=== PATIENT | female | born 1990 | race Caucasian/White ===

== ENCOUNTER 2018-02-14 18:59 | Inpatient (IN) | payer BC ==
[2018-02-14] MEDS ORDERED: Lidocaine 1% 50 ML MDV INJECT PRN (21:46)
[2018-02-14] MEDS ORDERED: Methylergonovine 0.2 MG/1 ML Amp IM PRN (21:46)
[2018-02-14] MEDS ORDERED: Sodium Chloride 0.9% 10 ML Syringe FLUSH PRN (21:46)
[2018-02-14] MEDS ORDERED: Sodium Chloride 0.9% 2.5 ML Syringe FLUSH PRN (21:46)
[2018-02-14] MEDS ORDERED: Misoprostol 200 MCG Tab PO PRN (21:46)
[2018-02-14] MEDS ORDERED: Carboprost Tromethamine 250 MCG/1 ML Amp IM PRN (21:46)
[2018-02-14] MEDS ORDERED: Nalbuphine 10 MG/1 ML Vial IVPUSH PRN (21:46)
[2018-02-14] MEDS ORDERED: Water For Irrigation,Sterile 1,000 ML Container IRR PRN (21:46)
[2018-02-14] MEDS ORDERED: Butorphanol 1 MG/ML SDV IVPUSH PRN (21:46)
[2018-02-14] MEDS ORDERED: Tranexamic Acid 1,000 MG in Sodium Chloride 0.9% 100 ML IV PRN (21:46)
[2018-02-14] MEDS ORDERED: Oxytocin/0.9 % Sodium Chloride 30 UNIT/500 ML BAG IV SCH (22:00)
[2018-02-15] MEDS ORDERED: Oxytocin/0.9 % Sodium Chloride 30 UNIT/500 ML BAG IV SCH (05:00)
[2018-02-15] MEDS: Lactated Ringers 1,000 ML IV SCH ×3 (05:36→14:10)
[2018-02-15] MEDS ORDERED: fentaNYL 100 MCG/2 ML SDV ONE ×2 (11:02→13:58)
--- NOTE | 2018-02-15 11:46 | PCM.PREANE ---
Preanesthetic Assessment - Anesthesia/Transfusion/Family Hx Anesthesia History: Prior Anesthesia Without Reaction (pt had a bad experience with a one-sided epidural last ) Other Type of Anesthesia Reaction Comment: Nausea/vomiting, with history motion sickness Family History of Anesthesia Reaction: No Transfusion History: No Prior Transfusion(s) Intubation History: Unknown - Review of Systems General: No Symptoms Pulmonary: No Symptoms Cardiovascular: No Symptoms Gastrointestinal: No Symptoms Neurological: No Symptoms Other: Reports: Anxiety (almost PTSD related to previous epidural placement experience) - Physical Assessment NPO Status Date: 02/15/18 NPO Status Time: 11:43 (sips/chips) Blood Pressure: 119/80 Height: 5 ft 3 in Weight: 155 lb ASA Class: 2 Mental Status: Alert & Oriented x3 Airway Class: Mallampati = 2 Dentition: Reports: Normal Dentition Thyro-Mental Finger Breadths: 3 Mouth Opening Finger Breadths: 3 ROM/Head Extension: Full Lungs: Clear to Auscultation, Normal Respiratory Effort Cardiovascular: Regular Rate, Regular Rhythm - Lab Values: Laboratory Last Values WBC 9.78 K/uL (4.0-11.0) 02/14/18 22:00 RBC 3.90 M/uL (4.30-5.90) L 02/14/18 22:00 Hgb 11.3 g/dL (12.0-16.0) L 02/14/18 22:00 Hct 32.8 % (36.0-46.0) L 02/14/18 22:00 MCV 84.1 fL (80.0-98.0) 02/14/18 22:00 MCH 29.0 pg (27.0-32.0) 02/14/18 22:00 MCHC 34.5 g/dL (31.0-37.0) 02/14/18 22:00 RDW Std Deviation 38.4 fl (28.0-62.0) 02/14/18 22:00 RDW Coeff of Lisette 13 % (11.0-15.0) 02/14/18 22:00 Plt Count 226 K/uL (150-400) 02/14/18 22:00 MPV 10.60 fL (7.40-12.00) 02/14/18 22:00 Nucleated RBC % 0.0 /100WBC 02/14/18 22:00 Nucleated RBCs # 0 K/uL 02/14/18 22:00 Membrane Rupture POSITIVE 02/14/18 19:20 Blood Type O POSITIVE 02/14/18 22:00 Antibody Screen NEGATIVE 02/14/18 22:00 - Allergies Allergies/Adverse Reactions: Allergies Allergy/AdvReac Type Severity Reaction Status Date / Time sulfamethoxazole Allergy Hives Verified 02/19/16 12:42 [From Bactrim] trimethoprim [From Bactrim] Allergy Hives Verified 02/19/16 12:42 - Blood Blood Available: No Product(s) Available: None - Anesthesia Plan Free Text/Narrative:: Labor Epidural - Acknowledgements Anesthesia Type Planned: Epidural Pt an Appropriate Candidate for the Planned Anesthesia: Yes Alternatives and Risks of Anesthesia Discussed w Pt/Guardian: Yes Pt/Guardian Understands and Agrees with Anesthesia Plan: Yes PreAnesthesia Questionnaire - Past Health History Medical/Surgical History: Denies Medical/Surgical History Other Genitourinary History: Current UTI, started medication 06/10/15 [facility], Dr. 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: Other Musculoskeletal History: History Closed reduction Leg - Past Surgical History Other HEENT Surgeries/Procedures: 3 ear surgeries for growth in ears, Deaf on Left, diminished hearing Right, [place] teeth extracted - SUBSTANCE USE Smoking Status *Q: Never Smoker Tobacco Use Within Last Twelve Months: No Second Hand Smoke Exposure: No Recreational Drug Use History: No - HOME MEDS Home Medications: Home Meds Vit W-Ca,Fe,FA(<1 mg) [ Vitamins] 1 tab PO DAILY 02/19/16 [ History] - CURRENT (IN HOUSE) MEDS Current Meds: Current Medications Butorphanol Tartrate (Stadol) 1 mg IVPUSH Q1H PRN PRN Reason: Pain Carboprost Tromethamine (Hemabate Ds) 250 mcg IM ASDIRECTED PRN PRN Reason: Post Hemorrhage Tranexamic Acid 1,000 mg/ (Sodium Chloride) 110 mls @ 660 mls/hr IV ONETIME PRN PRN Reason: Bleeding Lactated Ringer's (Ringers, Lactated) 1,000 mls @ 150 mls/hr IV ASDIRECTED JUNAID Last Admin: 02/15/18 05:36 Dose: 150 mls/hr Oxytocin/Sodium Chloride (Oxytocin 30 Unit/500 Ml-Ns) 30 unit in 500 mls @ 999 mls/hr IV TITRATE JUNAID Oxytocin/Sodium Chloride (Oxytocin 30 Unit/500 Ml-Ns) 30 unit in 500 mls @ 2 mls/hr IV TITRATE JUNAID; Protocol Last Infusion: 02/15/18 11:38 Dose: 2 munits/min, 2 mls/hr Lidocaine HCl (Xylocaine 1%) 50 ml INJECT .ONCE PRN PRN Reason: Laceration repair Methylergonovine Maleate (Methergine) 0.2 mg IM ASDIRECTED PRN PRN Reason: Post Hemorrhage Misoprostol (Cytotec) 200 mcg PO .ONCE PRN PRN Reason: Post Hemorrhage Nalbuphine HCl (Nubain) 10 mg IVPUSH Q1H PRN PRN Reason: Pain (severe 7-10) Sodium Chloride (Saline Flush) 10 ml FLUSH ASDIRECTED PRN PRN Reason: Keep Vein Open Sodium Chloride (Saline Flush) 2.5 ml FLUSH ASDIRECTED PRN PRN Reason: Keep Vein Open Sterile Water (Sterile Water For Irrigation) 1,000 ml IRR ASDIRECTED PRN PRN Reason: delivery Discontinued Medications Fentanyl (Sublimaze) Confirm Administered Dose 100 mcg .ROUTE .STK-MED ONE Stop: 02/15/18 11:03 Fentanyl/Bupivacaine HCl (Kuzvhyrf-Luuyi-Ln 2 Mcg/Ml-0.125%) Confirm Administered Dose 100 mls @ as directed EP .STK-MED ONE Stop: 02/15/18 11:03
[2018-02-15] MEDS ORDERED: Bupivacaine 0.25% 10 ML SDV ONE (13:10)
[2018-02-15] MEDS ORDERED: Acetaminophen 500 MG Tab PO PRN ×2 (15:20)
[2018-02-15] MEDS ORDERED: Witch Hazel Medicated Pads 40/Jar TOP PRN (15:20)
[2018-02-15] MEDS ORDERED: Lanolin 100% Cream 7 GM Tube TOP PRN (15:20)
[2018-02-15] MEDS ORDERED: Ibuprofen 400 MG Tab PO PRN (15:20)
[2018-02-15] MEDS ORDERED: Bisacodyl 10 MG Supp RECTAL PRN (15:20)
[2018-02-15] MEDS ORDERED: oxyCODONE 5 MG Tab PO PRN (15:20)
[2018-02-15] MEDS ORDERED: Benzocaine/Menthol 20%-0.5% Spray 78 GM Cannister TOP PRN (15:20)
[2018-02-15] MEDS: Ibuprofen 800 MG Tab PO PRN (18:39)
[2018-02-15] MEDS: Docusate Sodium 100 MG Cap PO PRN (21:33)
--- NOTE | 2018-02-15 21:37 | OR ---
SURGEON: Dee Ramirez MD DATE OF PROCEDURE: 02/15/2018 [facility] OFFICER: Leslie Melendez MS IV PREOPERATIVE DIAGNOSES: 1. Intrauterine at 38 weeks and 5 days' gestation. 2. Prolonged premature rupture of membranes. 3. Group B Streptococcus negative. POSTOPERATIVE DIAGNOSES: 1. Intrauterine at 38 weeks and 5 days' gestation. 2. Prolonged premature rupture of membranes. 3. Group B Streptococcus negative. 4. Delivered. PROCEDURES: 1. Induction of labor. 2. Spontaneous vaginal delivery. 3. Repair of second-degree perineal laceration. ANESTHESIA: Epidural and local. ESTIMATED BLOOD LOSS: 300 mL. COMPLICATIONS: None. DISPOSITION: Mother and baby stable in Labor and Delivery room, [facility]. FINDINGS: Male , weight 3940 g, scores of 9 and 9 at 1 and 5 minutes respectively. Grossly normal placenta with 3-vessel cord. Second-degree perineal laceration. BRIEF HISTORY: Monika is a 27-year-old, G3, P2, who presented at about 11:00 p.m. last night, at 38 weeks and 1 day gestation with a history of leakage of fluid since 5:30 p.m. She reported the fluid to be clear accompanied by had irregular cramps and occasional contractions.Denied vaginal bleeding, and reported movements. Her care was uncomplicated.GBS negative. When she was examined, she was found to be 3 cm dilated, 80% effaced, station -2, and confirmed with spontaneous rupture, leaking of clear amniotic fluid. Management options were discussed with the patient including induction of labor versus expectant management. She was hesitant to have Pitocin and preferred to wait for expectant management. She was then monitored throughout the night till early hours of this morning, and Pitocin was started approximately 12 hours after she had ruptured. At that time, she had made no cervical change on vaginal exam and contractions were quite irregular. The patient was actually asleep before her Pitocin was started. She remained afebrile. With Pitocin, she then started having regular contractions, requested and received epidural for pain management. Unfortunately, her epidural was not really adequate despite a couple of top offs. She progressed to full dilatation and with increasing rectal pressure, commenced active pushing. heart tracing was category 2 with a raising baseline, from 130s to 160s beats per minute,occasional variable and early decelerations, with a variability that remained moderate. The patient remained afebrile throughout the intrapartum period. She pushed quite well, bringing the baby's head down to a +4 station and was set up for delivery in modified dorsal lithotomy position. DESCRIPTION OF PROCEDURE: She had a spontaneous vaginal delivery of a live male infant in direct occipital anterior position, loose nuchal cord x1 was easily reduced, clear amniotic fluid at delivery. Anterior and the posterior shoulders and the rest of the baby were delivered without difficulty. The baby was vigorous and cried spontaneously at . The baby was delivered onto the maternal abdomen with the nursery nurse in attendance, stimulating and drying him. With delivery of the , oxytocin infusion was changed to titration for active management of third stage of labor. Cord blood and gas samples were obtained. The placenta was delivered by controlled cord traction, appeared to be complete and intact. Examination of the perineum revealed a second-degree perineal laceration, which was infiltrated with 10 mL of 1% lidocaine without epinephrine. After adequate anesthesia was achieved, the laceration was repaired with 2-0 Vicryl suture in three layers using subcuticular stitches to appose the skin. Uterine massage was performed, and uterus was found to be well contracted below the umbilicus. The patient tolerated the procedure well. Sponge, instrument, and needle counts were correct at the end of the delivery. ADUMVIV / SREEL /[id number] MTDD
[2018-02-16] MEDS: Ibuprofen 800 MG Tab PO PRN ×2 (03:21→15:22)
--- NOTE | 2018-02-16 06:33 | PCM48HPAN ---
Post Anesthesia Note - EVALUATION WITHIN 48HRS OF ANESTHETIC Vital Signs in Normal Range: Yes Patient Participated in Evaluation: Yes Respiratory Function Stable: Yes Airway Patent: Yes Cardiovascular Function Stable: Yes Hydration Status Stable: Yes Pain Control Satisfactory: Yes Nausea and Vomiting Control Satisfactory: Yes Mental Status Recovered: Yes Resp Rate: 18 Blood Pressure: 119/80
--- NOTE | 2018-02-16 08:10 | PCM.PNPP ---
<AlArgelia Debbie - Last Filed: 02/16/18 08:04> - General Info Date of Service: 02/16/18 Admission Dx/Problem (Free Text): 38 5/7, prolonged premature rupture of membranes, Induction, . Subjective Update: Patient is doing well. Pain controlled with medications. . Lochia WNL. Ambulating. Urinating. Has not had a bowel movement. Tolerated food with no n/v. Anticipate discharge later today. Functional Status: Reports: Pain Controlled, Tolerating Diet, Ambulating, Urinating - Review of Systems General: Denies: Fever, Chills HEENT: Denies: Headaches Pulmonary: Denies: Shortness of Breath, Pleuritic Chest Pain Cardiovascular: Denies: Chest Pain, Palpitations, Lightheadedness Gastrointestinal: Denies: Flatus, Nausea, Vomiting Neurological: Denies: Dizziness, Headache Psychiatric: Reports: No Symptoms - General Info Date of Service: 02/16/18 - Patient Data Vital Signs - Most Recent: Last Vital Signs Temp 36.6 C 02/16/18 03:30 Pulse 78 02/16/18 03:30 Resp 18 02/16/18 06:33 BP 119/80 02/16/18 06:33 Pulse Ox 98 02/16/18 03:30 Weight - Most Recent: 155 lb Lab Results - Last 24 Hours: Laboratory Results - last 24 hr 02/15/18 02/16/18 Range/Units 14:42 07:10 Hgb 9.6 L (12.0-16.0) g/dL Hct 28.5 L (36.0-46.0) % Cord ABG pH 7.347 (7.18-7.38) Cord ABG Base Excess -5 (-10--2) Cord VBG pH 7.366 (7.25-7.45) Cord VBG Base Excess -5 (-10--2) Med Orders - Current: Current Medications Acetaminophen (Tylenol Extra Strength) 500 mg PO Q4H PRN PRN Reason: Pain Acetaminophen (Tylenol Extra Strength) 1,000 mg PO Q4H PRN PRN Reason: Pain Benzocaine/Menthol (Dermoplast Pain Relief 20%-0.5% [place]) 78 gm TOP ASDIRECTED PRN PRN Reason: Perineal Comfort Measure Last Admin: 02/15/18 21:34 Dose: 1 spray Bisacodyl (Dulcolax) 10 mg RECTAL .ONCE PRN PRN Reason: Constipation Docusate Sodium (Colace) 100 mg PO BID PRN PRN Reason: Constipation Last Admin: 02/15/18 21:33 Dose: 100 mg Emollient Ointment (Lansinoh Hpa) 0 gm TOP ASDIRECTED PRN PRN Reason: Sore Nipples Last Admin: 02/16/18 03:23 Dose: 1 applic Ibuprofen (Motrin) 400 mg PO Q4H PRN PRN Reason: Pain Ibuprofen (Motrin) 800 mg PO Q6H PRN PRN Reason: Pain Last Admin: 02/16/18 03:21 Dose: 800 mg Oxycodone HCl (Oxycodone) 5 mg PO Q2H PRN PRN Reason: Pain Witch Carleen (Tucks) 1 pad TOP ASDIRECTED PRN PRN Reason: comfort care Last Admin: 02/15/18 21:33 Dose: 1 pad Discontinued Medications Bupivacaine HCl (Sensorcaine-Mpf 0.25%) Confirm Administered Dose 10 ml .ROUTE .STK-MED ONE Stop: 02/15/18 13:11 Butorphanol Tartrate (Stadol) 1 mg IVPUSH Q1H PRN PRN Reason: Pain Carboprost Tromethamine (Hemabate Ds) 250 mcg IM ASDIRECTED PRN PRN Reason: Post Hemorrhage Fentanyl (Sublimaze) Confirm Administered Dose 100 mcg .ROUTE .STK-MED ONE Stop: 02/15/18 11:03 Fentanyl (Sublimaze) Confirm Administered Dose 100 mcg .ROUTE .STK-MED ONE Stop: 02/15/18 13:59 Tranexamic Acid 1,000 mg/ (Sodium Chloride) 110 mls @ 660 mls/hr IV ONETIME PRN PRN Reason: Bleeding Lactated Ringer's (Ringers, Lactated) 1,000 mls @ 150 mls/hr IV ASDIRECTED JUNAID Last Admin: 02/15/18 14:10 Dose: 150 mls/hr Oxytocin/Sodium Chloride (Oxytocin 30 Unit/500 Ml-Ns) 30 unit in 500 mls @ 999 mls/hr IV TITRATE JUANID Oxytocin/Sodium Chloride (Oxytocin 30 Unit/500 Ml-Ns) 30 unit in 500 mls @ 2 mls/hr IV TITRATE JUNAID; Protocol Last Infusion: 02/15/18 14:44 Dose: 500 munits/min, 500 mls/hr Fentanyl/Bupivacaine HCl (Bloxzasp-Ogjra-Tm 2 Mcg/Ml-0.125%) Confirm Administered Dose 100 mls @ as directed EP .STK-MED ONE Stop: 02/15/18 11:03 Lidocaine HCl (Xylocaine 1%) 50 ml INJECT .ONCE PRN PRN Reason: Laceration repair Last Admin: 02/15/18 21:34 Dose: 50 ml Methylergonovine Maleate (Methergine) 0.2 mg IM ASDIRECTED PRN PRN Reason: Post Hemorrhage Misoprostol (Cytotec) 200 mcg PO .ONCE PRN PRN Reason: Post Hemorrhage Nalbuphine HCl (Nubain) 10 mg IVPUSH Q1H PRN PRN Reason: Pain (severe 7-10) Sodium Chloride (Saline Flush) 10 ml FLUSH ASDIRECTED PRN PRN Reason: Keep Vein Open Sodium Chloride (Saline Flush) 2.5 ml FLUSH ASDIRECTED PRN PRN Reason: Keep Vein Open Sterile Water (Sterile Water For Irrigation) 1,000 ml IRR ASDIRECTED PRN PRN Reason: delivery - Interaction Infant Disposition, : [place] in Room with Family Infant Interaction: Holding Feeding: Breastfed ; Nursed Well Support Person: - Recovery Exam Fundal Tone: Firm Fundal Level: 2 Fingerbreadths Below Umbilicus Fundal Placement: Midline Lochia Amount: Scant Lochia Color: Rubra/Red Episiotomy/Laceration: Approximated Bladder Status: Voiding Urinary Elimination: Voided - Exam General: Alert, Oriented, No Acute Distress Lungs: Clear to Auscultation, Normal Respiratory Effort Cardiovascular: Regular Rate, Regular Rhythm GI/Abdominal Exam: Soft, Non-Tender Extremities: No Pedal Edema Skin: Warm, Dry Psy/Mental Status: Alert - Problem List & Annotations (1) Vaginal delivery SNOMED Code(s): 051511726 Code(s): O80 - ENCOUNTER FOR FULL-TERM UNCOMPLICATED DELIVERY Status: Acute Current Visit: No - Assessment Assessment:: Post- day #1. Stable. Anticipate discharge later today. - Plan Plan:: Reviewed discharge instructions. Continue PNV while . Pelvic rest for 6 weeks. Call if fever greater than 101 or bleeding through a heavy pad in an hour. Follow-up appointment in 6 weeks. <Dee Ramirez - Last Filed: 02/16/18 08:50> - Patient Data Vital Signs - Most Recent: Last Vital Signs Temp 36.6 C 02/16/18 03:30 Pulse 78 02/16/18 03:30 Resp 18 02/16/18 06:33 BP 119/80 02/16/18 06:33 Pulse Ox 98 02/16/18 03:30 Lab Results - Last 24 Hours: Laboratory Results - last 24 hr 02/15/18 02/16/18 Range/Units 14:42 07:10 Hgb 9.6 L (12.0-16.0) g/dL Hct 28.5 L (36.0-46.0) % Cord ABG pH 7.347 (7.18-7.38) Cord ABG Base Excess -5 (-10--2) Cord VBG pH 7.366 (7.25-7.45) Cord VBG Base Excess -5 (-10--2) Med Orders - Current: Current Medications Acetaminophen (Tylenol Extra Strength) 500 mg PO Q4H PRN PRN Reason: Pain Last Admin: 02/16/18 08:21 Dose: 500 mg Acetaminophen (Tylenol Extra Strength) 1,000 mg PO Q4H PRN PRN Reason: Pain Benzocaine/Menthol (Dermoplast Pain Relief 20%-0.5% [place]) 78 gm TOP ASDIRECTED PRN PRN Reason: Perineal Comfort Measure Last Admin: 02/15/18 21:34 Dose: 1 spray Bisacodyl (Dulcolax) 10 mg RECTAL .ONCE PRN PRN Reason: Constipation Docusate Sodium (Colace) 100 mg PO BID PRN PRN Reason: Constipation Last Admin: 02/16/18 08:16 Dose: 100 mg Emollient Ointment (Lansinoh Hpa) 0 gm TOP ASDIRECTED PRN PRN Reason: Sore Nipples Last Admin: 02/16/18 03:23 Dose: 1 applic Ibuprofen (Motrin) 400 mg PO Q4H PRN PRN Reason: Pain Ibuprofen (Motrin) 800 mg PO Q6H PRN PRN Reason: Pain Last Admin: 02/16/18 03:21 Dose: 800 mg Oxycodone HCl (Oxycodone) 5 mg PO Q2H PRN PRN Reason: Pain Witch Carleen (Tucks) 1 pad TOP ASDIRECTED PRN PRN Reason: comfort care Last Admin: 02/15/18 21:33 Dose: 1 pad Discontinued Medications Bupivacaine HCl (Sensorcaine-Mpf 0.25%) Confirm Administered Dose 10 ml .ROUTE .STK-MED ONE Stop: 02/15/18 13:11 Butorphanol Tartrate (Stadol) 1 mg IVPUSH Q1H PRN PRN Reason: Pain Carboprost Tromethamine (Hemabate Ds) 250 mcg IM ASDIRECTED PRN PRN Reason: Post Hemorrhage Fentanyl (Sublimaze) Confirm Administered Dose 100 mcg .ROUTE .STK-MED ONE Stop: 02/15/18 11:03 Fentanyl (Sublimaze) Confirm Administered Dose 100 mcg .ROUTE .STK-MED ONE Stop: 02/15/18 13:59 Tranexamic Acid 1,000 mg/ (Sodium Chloride) 110 mls @ 660 mls/hr IV ONETIME PRN PRN Reason: Bleeding Lactated Ringer's (Ringers, Lactated) 1,000 mls @ 150 mls/hr IV ASDIRECTED JUNAID Last Admin: 02/15/18 14:10 Dose: 150 mls/hr Oxytocin/Sodium Chloride (Oxytocin 30 Unit/500 Ml-Ns) 30 unit in 500 mls @ 999 mls/hr IV TITRATE JUNAID Oxytocin/Sodium Chloride (Oxytocin 30 Unit/500 Ml-Ns) 30 unit in 500 mls @ 2 mls/hr IV TITRATE JUNAID; Protocol Last Infusion: 02/15/18 14:44 Dose: 500 munits/min, 500 mls/hr Fentanyl/Bupivacaine HCl ([place]-Ko 2 Mcg/Ml-0.125%) Confirm Administered Dose 100 mls @ as directed EP .STK-MED ONE Stop: 02/15/18 11:03 Lidocaine HCl (Xylocaine 1%) 50 ml INJECT .ONCE PRN PRN Reason: Laceration repair Last Admin: 02/15/18 21:34 Dose: 50 ml Methylergonovine Maleate (Methergine) 0.2 mg IM ASDIRECTED PRN PRN Reason: Post Hemorrhage Misoprostol (Cytotec) 200 mcg PO .ONCE PRN PRN Reason: Post Hemorrhage Nalbuphine HCl (Nubain) 10 mg IVPUSH Q1H PRN PRN Reason: Pain (severe 7-10) Sodium Chloride (Saline Flush) 10 ml FLUSH ASDIRECTED PRN PRN Reason: Keep Vein Open Sodium Chloride (Saline Flush) 2.5 ml FLUSH ASDIRECTED PRN PRN Reason: Keep Vein Open Sterile Water (Sterile Water For Irrigation) 1,000 ml IRR ASDIRECTED PRN PRN Reason: delivery - Problem List & Annotations (1) Vaginal delivery SNOMED Code(s): 447112888 Code(s): O80 - ENCOUNTER FOR FULL-TERM UNCOMPLICATED DELIVERY Status: Acute Current Visit: No - Problem List Review Problem List Initiated/Reviewed/Updated: Yes - My Orders Last 24 Hours: My Active Orders 02/15/18 15:20 Acetaminophen [Tylenol Extra Strength] 1,000 mg PO Q4H PRN Acetaminophen [Tylenol Extra Strength] 500 mg PO Q4H PRN Benzocaine/Menthol [Dermoplast Pain Relief 20%-0.5% [place]] 78 gm TOP ASDIRECTED PRN Bisacodyl [Dulcolax] 10 mg RECTAL .ONCE PRN Docusate Sodium [Colace] 100 mg PO BID PRN Ibuprofen [Motrin] 400 mg PO Q4H PRN Ibuprofen [Motrin] 800 mg PO Q6H PRN Lanolin [Lansinoh HPA] See Dose Instructions TOP ASDIRECTED PRN Witch Carleen [Tucks] 1 pad TOP ASDIRECTED PRN oxyCODONE 5 mg PO Q2H PRN Breast Pump [WOMSER] Per Unit Routine Resuscitation Status Routine 02/15/18 15:21 Patient Status [ADT] Routine May Shower [RC] ASDIRECTED Up ad Sona [RC] ASDIRECTED Vital Signs [RC] PER UNIT ROUTINE Assess Lochia [WOMSER] Per Unit Routine Assess Uterine Involution [WOMSER] Per Unit Routine Perineal Care [OM.PC] Per Unit Routine Peripheral IV Discontinue [OM.PC] Routine 02/15/18 Dinner Regular Diet [DIET] - Assessment Assessment:: Evaluated independently and agree with above - Plan Plan:: Agree with above plan Reviewed blues vs depression S/S Patient may be discharged later today.
[2018-02-16] MEDS: Docusate Sodium 100 MG Cap PO PRN (08:16)
[2018-02-16 10:24] VITALS: BP 106/67
== END 2018-02-16 18:00 | disposition home or self-care (01) | DRG 560 ==
LOC: MW.OBCHECK 18:59 → MW.OB 19:04 → MW.OBCHECK 21:47 → MW.OB 21:47 → OBSVTOIN 02-15 15:21
PROVIDERS: ADMIT Obstetrics & Gynecology; ATTEND Obstetrics & Gynecology
PROC: 10E0XZZ Delivery of Products of Conception, External Approach (ICD-10-PCS; principal; 2018-02-15)
PROC: 3E033VJ Introduction of Other Hormone into Peripheral Vein, Percutaneous Approach (ICD-10-PCS; 2018-02-15)
PROC: 0KQM0ZZ Repair Perineum Muscle, Open Approach (ICD-10-PCS; 2018-02-15)
DX: O42.02 Full-term premature rupture of membranes, onset of labor within 24 hours of rupture (principal); O70.1 Second degree perineal laceration during delivery; Z3A.38 38 weeks gestation of pregnancy; Z37.0 Single live birth
CPT/HCPCS: 36415; 51702; 59025; 59409; 82803; 84112; 85014; 85018; 85027; 86850; 86900; 86901; A9270-GY; J2590; J3010; J7120